=== PATIENT | female | born 1975 | race Two or more races ===

== ENCOUNTER 2023-12-16 15:03 | Emergency (ER) | payer OTHER ==
[~2023-12-16] VITALS: Ht 162.6 cm; Wt 105.7 kg
[2023-12-16 16:40] VITALS: BP 124/73; TEMP 98.8
[2023-12-16 16:54] VITALS: PULSE 66; RESP 16; O2SAT 98
== END 2023-12-16 17:10 | disposition home or self-care (01) ==
LOC: ER 15:03
DX: F07.81 Postconcussional syndrome (principal); Z88.0 Allergy status to penicillin; W50.0XXA Accidental hit or strike by another person, initial encounter; Y93.89 Activity, other specified; Y92.89 Other specified places as the place of occurrence of the external cause; Y99.0 Civilian activity done for income or pay
CPT/HCPCS: 70450